=== PATIENT | female | born 2000 | race Caucasian/White ===

== ENCOUNTER 2025-06-25 17:06 | Outpatient (CLI) | payer OTHER, SELFPAY ==
--- NOTE | ~2025-06-25 | XR_ITS ---
EXAMINATION: SCOLIOSIS DATE: 06/27/2025 8:10 CDT INDICATION: Scoliosis TECHNIQUE: Standing AP and lateral views of the thoracolumbar spine FINDINGS: There are 12 rib bearing thoracic vertebral bodies and 5 non-rib bearing lumbar type vertebral bodies. There is no listhesis, compression deformity or vertebral body anomalies. There is levocurvature of the upper thoracic spine centered at T4 measuring 8 degrees. There is dextrocurvature of the lower thoracic spine centered at T10 measuring 4 degrees and there is levocurvature of the lumbar spine centered at L2-3 measuring 9 degrees. IMPRESSION: 1. Mild curvature of the thoracolumbar spine as discussed above. 2. No vertebral body anomalies. Reviewed, dictated and finalized at location O.
--- OUTSIDE RECORDS SUMMARY | 2025-06-25 17:12 | XMS_ITS | Clinical Summary ---
Author Organization [facility] Health Address [address] [place] [address] Care Team Providers Care Reporting Developer Name Role Phone Unavailable Primary Care Provider Unavailabl e Allergies Active Allergy Reactions Criticality Noted Date Comments Cat Dander Low 09/11/2023 Other Reaction(s): Rash Drospirenone-Ethiny l Estradiol 04/14/2020 Other Reaction(s): Unknown Gluten High 09/11/2023 Other Reaction(s): GI Reaction Celiac Disease Lactose Medium 07/11/2017 Other Reaction(s): Vomiting Latex Hives,Itching,Rash Low 12/15/2020 Shellfish Containing Products High 09/11/2023 Other Reaction(s): Anaphylaxis Sulfa (Sulfonamide Antibiotics) Rash High 09/11/2023 Other Reaction(s): Anaphylaxis Wheat 09/11/2023 Other Reaction(s): Gastrointestinal Symptom Medications ProAir HFA 90 mcg/actuation inhaler 2 Active Symbicort 80-4.5 mcg/actuation inhaler 1 Active AntifungaL, clotrimazole, 1 % cream 1 Active Baqsimi 3 mg/actuation spray,non-aeroso l 2 Active Tresiba FlexTouch U-200 200 unit/mL (3 mL) injection 2 Active HumaLOG KwikPen Insulin 200 unit/mL (3 mL) insulin pen injection 2 Active levothyroxine (SYNTHROID, UNITHROID) 75 mcg tablet 2 Active montelukast (SINGULAIR) 10 mg tablet 2 Active metFORMIN XR (GLUCOPHATE-XR) 500 mg 24 hr tablet 2 Active ondansetron (ZOFRAN) 4 mg tablet 2 Active triamcinolone (KENALOG) 0.1 % ointment 2 Active chlorhexidine (PERIDEX) 0.12 % solution Use 15ml to rinse 1 minute then spit out, use BID for 7 days 21 mL 2 Active Precision Xtra Test test strip 2 Active doxycycline (ADOXA) 100 mg tablet TAKE 1 TABLET BY MOUTH TWICE DAILY WITH MEAL 2 Active DULoxetine (CYMBALTA) [address] capsule TAKE 1 CAPSULE BY MOUTH TWICE DAILY. DO NOT CRUSH OR CHEW 2 Active hydrocortisone 2.5 % cream Apply to affected areas twice daily for 2 weeks as needed for flares. 2 Active BD Ultra-Fine Cassidy Pen Needle 32 gauge x 5/32 needle 2 Active insulin lispro (HumaLOG) 100 unit/mL injection 2 Active montelukast (Singulair) 10 mg tablet Active amoxicillin-pot clavulanate (AUGMENTIN) 875-125 mg tablet Take 1 tablet by mouth in the morning and at bedtime. for 10 days 3 Active fluticasone propion-salmeter oL (Advair Diskus) 250-50 mcg/dose diskus inhaler Obtain advice for OTCs.For inhalation.Ch nicole with your doctor before becoming .Rins e mouth after use. 3 Active gabapentin (NEURONTIN) 300 mg capsule May cause drowsiness.Ta ke or use exactly as directed. 3 Active Active Problems Problem Noted Date Diagnosed Date Acute upper respiratory infection 09/11/2023 Overview (09/11/2023): Reassured parent. Discussed expected course of illness and advised to irrigate nose with saline. Humidifier to help loosen secretions. Tylenol or Motrin for fevers. Push fluids to maintain hydration. Wash hands well to prevent spread. Should symptoms persist for more Panic disorder 09/11/2023 Eczema 09/11/2023 Overview (09/11/2023): Mild atopic deramtitis confined to her wrists. Apply Hydrocort 1% topically bid for 2 weeks and then as needed for itching rash. RTC prn if no improvement. Outside Source Comment: Mild atopic deramtitis confined to her wrists. Apply Hydrocort 1% topically bid for 2 weeks and then as needed for itching rash. RTC prn if no improvement. MOISTURIZE W/ MOISTURIZING LOTION IMMEDIATELY AFTER BATHING. LIMIT SOAP USE AND ONLY MOISTURIZING SOAP (IE DOVE) TX FLARE UP W/ TAC CREAM AND MAINTAIN W/ HYDROCORT NEEDED. 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 Family history of endometriosis 09/11/2023 History of asthma 09/11/2023 History of type 1 diabetes mellitus 09/11/2023 assisted (current) use of oral hypoglycemic wendie gs 09/11/2023 terminal worker current use of insulin 09/11/2023 Mild persistent asthma 09/11/2023 Neuropathy due to type 1 diabetes mellitus 09/11 Right upper quadrant pain 09/11/2023 Sinusitis 09/11/2023 Skin rash 09/11/2023 Type 1 diabetes mellitus with hyperglycemia 08/31 Encounter for childhood immunizations appropriat e for age 0402/25/2023 Abdominal pain 02/24/2023 Allergic rhinitis due to pollen 02/24/2023 Asthma 02/24/2023 Autoimmune thyroiditis 02/24/2023 Chronic pain syndrome 02/24/2023 Gastroesophageal reflux disease without esophagi tis 02/24/2023 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 Adolescent idiopathic scoliosis, site unspecifie d 04/28/2018 Hypothyroidism, unspecified 04/28/2018 Moderate persistent asthma, uncomplicated 2017 Other allergic rhinitis 04/28/2018 Type 1 diabetes mellitus without complication 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 Celiac disease 07/11/2017 Polycystic ovarian syndrome 07/11/2017 Social History Tobacco Use Types Packs/Day Years Used Date Smoking Tobacco: Never Smokeless Tobacco: Never Alcohol Use Standard Drinks/Week Comments Never 0 (1 standard drink = 0.6 oz pur e alcohol) Comments Unknown Sex and Gender Information Value Date Recorded Sex Assigned at Not on file Legal Sex Female 7:23 AM PST Gender Identity Not on file Sexual Orientation Not on file Last Filed Vital Signs Vital Sign Reading Time Taken Comments Blood Pressure 108/73 09/15/2024 8:14 AM PST Pulse 86 09/15/2024 8:14 AM PST Temperature - - Respiratory Rate - - Oxygen Saturation - - Inhaled Oxygen Concentration - - Weight - - Height - - Body Mass Index - - Plan of Treatment Health Maintenance Due Date Last Done Comments Dental Oral Exam 10/29/2024 04/28/2024, 09/2023, 12/24/2021, Additional history exists Dental Prophylaxis 10/29/2024 04/28/2024, 0 03/15/2023, 08/05/2022, Additional history exists Dental X-Ray: Bitewings 10/29/2024 04/28/2024 Velscope Screening 04/28/2025 04/28/2024, 11/11/2022 Dental CBCT 04/28/2027 04/28/2024, 12/24/2021, 06/01 Dental X-Ray: Full Mouth 04/29/2027 04/28/2024, 04/01 Dental X-Ray: Panoramic 08/19/2027 08/18/20, 04/28/2024, 09/10/2023, Additional history exists Procedures Procedure Name Priority Date/Time Associated Diagnosis Comments PANORAMIC RADIOGRAPHIC IMAGE Routine 08/18/2024 11:00 AM PDT [facility] CT CAPTURE AND INTERPRETATION WITH FIELD OF VIEW OF BOTH JAWS; WITH OR WITHOUT CRANIUM Routine 04/28/2024 11:00 AM PDT ADJUNCTIVE PRE-DIAGNOSTIC TEST THAT AIDS IN DETECTION OF MUCOSAL ABNORMALITIES Routine 04/28/2024 11:00 AM PDT PROPHYLAXIS - ADULT Routine 04/28/2024 1 1:00 AM PDT Encounter for dental examination and cleaning without abnormal findings COMPREHENSIVE ORAL EVALUATION - NEW OR ESTABLISHED PATIENT Routine 04/28/2024 11:00 AM PDT Encounter for dental examination and cleaning without abnormal findings from Last 3 Months or Most Recently Relevant to Health Maintenance Insurance [employer] [facility] [employer] [facility] [employer] [facility]
--- OUTSIDE RECORDS SUMMARY | 2025-06-25 17:12 | XMS_ITS | Encounter Summary ---
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, [address] [place] [address] Aura Cohen, KT 08/18/2024 11:00 AM PDT Office Visit [facility] [address], [address] [place] [address] Melly Moulton DMD 04/28/2024 11:00 AM PDT Office Visit [facility] [address], [address] [place] [address] Melly Moulton DMD Encounter for dental examination and cleaning without abnormal findings (Primary Dx) 09/10/2023 10:00 AM PST Office Visit [facility] [address], [address] [place] [phone] Keith Mosher DMD 03/15/2023 12:30 PM PDT Office Visit [facility] [address], [address] [place] [address] Suzy Jones, [facility] 11/11/2022 11:30 AM PST Office Visit [facility] [address] [place] [address] Suzy Jones, [facility] 11/11/2022 11:30 AM PST Office Visit [facility] [address] [place] [address] Keith Mosher, [facility] 08/05/2022 11:00 AM PDT Office Visit [facility] [address], [address] [place] [address] Suzy Jones, [facility] 04/29/2022 Travel 04/29/2022 10:30 AM PDT Office Visit [facility] [address], [address] [place] [address] Fernando Grant, DDS 04/29/2022 10:00 AM PDT Office Visit [facility] [address], [address] [place] [address] Suzy Jones, [facility] 02/23/2022 Travel 02/23/2022 9:00 AM PDT Office Visit [facility] [address] [place] [address] Maryanne Burroughs, KT 02/11/2022 Travel 02/11/2022 2:00 PM PDT Office Visit [facility] [address] [place] [address] Maryanne Burroughs DDS 01/12/2022 Travel 01/12/2022 10:00 AM PDT Office Visit [facility] [address] [place] [address] Fernando Grant, KT 01/07/2022 Travel 01/07/2022 2:30 PM PST Consult [facility] [address] [place] [address] Maryanne Burroughs, DDS 12/24/2021 10:30 AM PST Office Visit [facility] [address], [address] [place] [address] Suzy Jones, RD 12/24/2021 Travel 12/24/2021 9:00 AM PST Office Visit [facility] [address] [place] [address] JuanitaFernando, DDS 07/09/2021 Travel 07/09/2021 11:00 AM PDT Office Visit [facility] [address] [place] [address] Lala Caba, DMD 06/23/2021 Travel 06/23/2021 10:00 AM PDT Office Visit [facility] [address] [place] [address] Lala Caba, DMD 12/15/2020 Travel 12/15/2020 10:00 AM PST Office Visit [facility] [address] [place] [address] Chelsy Sue, DMD 11/19/2019 Converted 13x Documents [facility] [address], [address] [place] [phone] <No scans attached> 11/19/2019 Converted 13x Documents [facility] [address] [place] [phone] <No scans attached> 11/19/2019 Converted CPS Chart Documents [facility] [address] [place] [phone] <No scans attached> 11/19/2019 Converted CPS Chart Documents [facility] [address] [place] [phone] <No scans attached> 11/19/2019 Converted 13x Documents [facility] [address] [place] [address] <No scans attached> Last Filed Vital Signs Vital Sign Reading Time Taken Comments Blood Pressure 108/73 09/15/2024 8:14 AM PST Pulse 86 09/15/2024 8:14 AM PST Temperature - - Respiratory Rate - - Oxygen Saturation - - Inhaled Oxygen Concentration - - Weight - - Height - - Body Mass Index - - Plan of Treatment Not on file Procedures Procedure Name Priority Date/Time Associated Diagnosis Comments PERIO CONSULT Routine 09/15/2024 8:00 AM PST PANORAMIC RADIOGRAPHIC IMAGE Routine 08/18/2024 11:00 AM PDT BITEWING - SINGLE RADIOGRAPHIC IMAGE Routine 08/18/2024 11:00 AM PDT ADDITIONAL X-RAY Routine 08/18/2024 11:0 0 AM PDT SINGLE X-RAY Routine 08/18/2024 11:00 AM PDT LIMITED ORAL EVALUATION - PROBLEM FOCUSED Routine 08/18/2024 11:00 AM PDT ORAL HYGIENE INSTRUCTIONS Routine 2023 11:00 AM PDT TOPICAL APPLICATION OF FLUORIDE VARNISH Routine 04/28/2024 11:00 AM PDT PROPHYLAXIS - ADULT Routine 04/28/2024 1 1:00 AM PDT Encounter for dental examination and cleaning without abnormal findings ADJUNCTIVE PRE-DIAGNOSTIC TEST THAT AIDS IN DETECTION OF MUCOSAL ABNORMALITIES Routine 04/28/2024 11:00 AM PDT INTRAORAL PHOTO Routine 04/28/2024 11:00 AM PDT INTRAORAL PHOTO Routine 04/28/2024 11:00 AM PDT INTRAORAL PHOTO Routine 04/28/2024 11:00 AM PDT INTRAORAL PHOTO Routine 04/28/2024 11:00 AM PDT ADDITIONAL X-RAY Routine 04/28/2024 11:0 0 AM PDT ADDITIONAL X-RAY Routine 04/28/2024 11:0 0 AM PDT ADDITIONAL X-RAY Routine 04/28/2024 11:0 0 AM PDT ADDITIONAL X-RAY Routine 04/28/2024 11:0 0 AM PDT ADDITIONAL X-RAY Routine 04/28/2024 11:0 0 AM PDT BITEWINGS - FOUR RADIOGRAPHIC IMAGES Routine 04/28/2024 11:00 AM PDT SINGLE X-RAY Routine 04/28/2024 11:00 AM PDT COMPREHENSIVE ORAL EVALUATION - NEW OR ESTABLISHED PATIENT Routine 04/28/2024 11:00 AM PDT Encounter for dental examination and cleaning without abnormal findings [facility] CT CAPTURE AND INTERPRETATION WITH FIELD OF VIEW OF BOTH JAWS; WITH OR WITHOUT CRANIUM Routine 04/28/2024 11:00 AM PDT PANORAMIC RADIOGRAPHIC IMAGE Routine 09/10/2023 10:00 AM PST BITEWING - SINGLE RADIOGRAPHIC IMAGE Routine 09/10/2023 10:00 AM PST ADDITIONAL X-RAY Routine 09/10/2023 10:0 0 AM PST SINGLE X-RAY Routine 09/10/2023 10:00 AM PST LIMITED ORAL EVALUATION - PROBLEM FOCUSED Routine 09/10/2023 10:00 AM PST ORAL HYGIENE INSTRUCTIONS Routine 2022 12:30 PM PDT PROPHYLAXIS - ADULT Routine 03/15/2023 1 2:30 PM PDT TOPICAL APPLICATION OF FLUORIDE VARNISH Routine 11/11/2022 11:30 AM PST SCALING IN PRESENCE OF GENERALIZED MODERATE OR SEVERE GINGIVAL INFLAMMATION Routine 11/11/2022 11:30 AM PST ADJUNCTIVE PRE-DIAGNOSTIC TEST THAT AIDS IN DETECTION OF MUCOSAL ABNORMALITIES Routine 11/11/2022 11:30 AM PST BITEWINGS - FOUR RADIOGRAPHIC IMAGES Routine 11/11/2022 11:30 AM PST ADDITIONAL X-RAY Routine 11/11/2022 11:3 0 AM PST ADDITIONAL X-RAY Routine 11/11/2022 11:3 0 AM PST PERIODIC ORAL EVALUATION - ESTABLISHED PATIENT Routine 11/11/2022 11:30 AM PST ADDITIONAL X-RAY Routine 11/11/2022 11:3 0 AM PST SINGLE X-RAY Routine 11/11/2022 11:30 AM PST ORAL HYGIENE INSTRUCTIONS Routine 2021 11:00 AM PDT PROPHYLAXIS - ADULT Routine 08/05/2022 1 1:00 AM PDT RE-EVALUATION POST-OPERATIVE OFFICE VISIT Routine 04/29/2022 10:30 AM PDT ORAL HYGIENE INSTRUCTIONS Routine 2021 10:00 AM PDT PROPHYLAXIS - ADULT Routine 04/29/2022 1 0:00 AM PDT RE-EVALUATION POST-OPERATIVE OFFICE VISIT Routine 02/23/2022 9:00 AM PDT 23 AUTOGENOUS CONNECTIVE TISSUE GRAFT PROCEDURE FIRST Routine 02/11/2022 2:00 PM PDT 23 (ENDO) BIOLOGIC MATERIAL TO AID IN SOFT AND OSSEOUS TISSUE REGENERATION Routine 02/11/2022 2:00 PM PDT SURGICAL STENT Routine 02/11/2022 2:00 PM PDT 24 ENAMELPLASTY Routine 01/12/2022 10:00 AM PDT BITEWING - SINGLE RADIOGRAPHIC IMAGE Routine 01/12/2022 10:00 AM PDT ADDITIONAL X-RAY Routine 01/12/2022 10:0 0 AM PDT LIMITED ORAL EVALUATION - PROBLEM FOCUSED Routine 01/12/2022 10:00 AM PDT SINGLE X-RAY Routine 01/12/2022 10:00 AM PDT PERIO CONSULT Routine 01/07/2022 2:30 PM PST ORAL HYGIENE INSTRUCTIONS Routine 2021 10:30 AM PST PROPHYLAXIS - ADULT Routine 12/24/2021 1 0:30 AM PST BITEWINGS - FOUR RADIOGRAPHIC IMAGES Routine 12/24/2021 9:00 AM PST ADDITIONAL X-RAY Routine 12/24/2021 9:00 AM PST [address] [address] [address] CAPTURE AND INTERPRETATION WITH FIELD OF VIEW OF BOTH JAWS; WITH OR WITHOUT CRANIUM Routine 12/24/2021 9:00 AM PST ADDITIONAL X-RAY Routine 12/24/2021 9:00 AM PST ADDITIONAL X-RAY Routine 12/24/2021 9:00 AM PST SINGLE X-RAY Routine 12/24/2021 9:00 AM PST PERIODIC ORAL EVALUATION - ESTABLISHED PATIENT Routine 12/24/2021 9:00 AM PST 31 O RESIN-BASED COMPOSITE - ONE SURFACE, POSTERIOR Routine 07/09/2021 11:00 AM PDT 19 O RESIN-BASED COMPOSITE - ONE SURFACE, POSTERIOR Routine 07/09/2021 11:00 AM PDT TOPICAL APPLICATION OF FLUORIDE VARNISH Routine 06/23/2021 10:00 AM PDT ORAL HYGIENE INSTRUCTIONS Routine 2020 10:00 AM PDT PROPHYLAXIS - ADULT Routine 06/23/2021 1 0:00 AM PDT [facility] [address] CAPTURE AND INTERPRETATION WITH FIELD OF VIEW OF BOTH JAWS; WITH OR WITHOUT CRANIUM Routine 06/23/2021 10:00 AM PDT BITEWINGS - FOUR RADIOGRAPHIC IMAGES Routine 06/23/2021 10:00 AM PDT ADDITIONAL X-RAY Routine 06/23/2021 10:0 0 AM PDT ADDITIONAL X-RAY Routine 06/23/2021 10:0 0 AM PDT ADDITIONAL X-RAY Routine 06/23/2021 10:0 0 AM PDT SINGLE X-RAY Routine 06/23/2021 10:00 AM PDT PERIODIC ORAL EVALUATION - ESTABLISHED PATIENT Routine 06/23/2021 10:00 AM PDT ORAL HYGIENE INSTRUCTIONS Routine 2020 10:00 AM PST PROPHYLAXIS - ADULT Routine 12/15/2020 1 0:00 AM PST BITEWINGS - FOUR RADIOGRAPHIC IMAGES Routine 12/15/2020 10:00 AM PST ADDITIONAL X-RAY Routine 12/15/2020 10:0 0 AM PST ADDITIONAL X-RAY Routine 12/15/2020 10:0 0 AM PST ADDITIONAL X-RAY Routine 12/15/2020 10:0 0 AM PST ADDITIONAL X-RAY Routine 12/15/2020 10:0 0 AM PST SINGLE X-RAY Routine 12/15/2020 10:00 AM PST PERIODIC ORAL EVALUATION - ESTABLISHED PATIENT Routine 12/15/2020 10:00 AM PST ORAL HYGIENE INSTRUCTIONS Routine 2019 12:00 AM PDT PROPHYLAXIS - ADULT Routine 06/09/2020 1 2:00 AM PDT CANCELLED APPOINTMENT Routine 05/29/2020 12:00 AM PDT ORAL HYGIENE INSTRUCTIONS Routine 2019 12:00 AM PST PROPHYLAXIS - ADULT Routine 12/10/2019 1 2:00 AM PST PERIODIC ORAL EVALUATION - ESTABLISHED PATIENT Routine 12/10/2019 12:00 AM PST ADDITIONAL X-RAY Routine 12/10/2019 12:0 0 AM PST ADDITIONAL X-RAY Routine 12/10/2019 12:0 0 AM PST ADDITIONAL X-RAY Routine 12/10/2019 12:0 0 AM PST SINGLE X-RAY Routine 12/10/2019 12:00 AM PST INTRAORAL PHOTO Routine 12/10/2019 12:00 AM PST INTRAORAL PHOTO Routine 12/10/2019 12:00 AM PST INTRAORAL PHOTO Routine 12/10/2019 12:00 AM PST INTRAORAL PHOTO Routine 12/10/2019 12:00 AM PST 15 LO COMPOSITE FILLING Routine 06/19/20 19 12:00 AM PDT 2 LO COMPOSITE FILLING Routine 9 12:00 AM PDT 18 O COMPOSITE FILLING Routine 9 12:00 AM PDT ORAL HYGIENE INSTRUCTIONS Routine 2018 12:00 AM PDT TOPICAL APPLICATION OF FLUORIDE VARNISH Routine 06/05/2019 12:00 AM PDT PROPHYLAXIS - ADULT Routine 06/05/2019 1 2:00 AM PDT PERIODIC ORAL EVALUATION - ESTABLISHED PATIENT Routine 06/05/2019 12:00 AM PDT BITEWINGS - FOUR RADIOGRAPHIC IMAGES Routine 06/05/2019 12:00 AM PDT ADDITIONAL X-RAY Routine 06/05/2019 12:0 0 AM PDT ADDITIONAL X-RAY Routine 06/05/2019 12:0 0 AM PDT SINGLE X-RAY Routine 06/05/2019 12:00 AM PDT INTRAORAL PHOTO Routine 06/05/2019 12:00 AM PDT INTRAORAL PHOTO Routine 06/05/2019 12:00 AM PDT INTRAORAL PHOTO Routine 06/05/2019 12:00 AM PDT INTRAORAL PHOTO Routine 06/05/2019 12:00 AM PDT ORAL HYGIENE INSTRUCTIONS Routine 2018 12:00 AM PST TOPICAL APPLICATION OF FLUORIDE VARNISH Routine 11/10/2018 12:00 AM PST PRODENTEC GEL/PASTE Routine 11/10/2018 1 2:00 AM PST PROPHYLAXIS - ADULT Routine 11/10/2018 1 2:00 AM PST PERIODIC ORAL EVALUATION - ESTABLISHED PATIENT Routine 11/10/2018 12:00 AM PST BITEWINGS - FOUR RADIOGRAPHIC IMAGES Routine 11/10/2018 12:00 AM PST ADDITIONAL X-RAY Routine 11/10/2018 12:0 0 AM PST ADDITIONAL X-RAY Routine 11/10/2018 12:0 0 AM PST ADDITIONAL X-RAY Routine 11/10/2018 12:0 0 AM PST ADDITIONAL X-RAY Routine 11/10/2018 12:0 0 AM PST ADDITIONAL X-RAY Routine 11/10/2018 12:0 0 AM PST SINGLE X-RAY Routine 11/10/2018 12:00 AM PST ORAL HYGIENE INSTRUCTIONS Routine 2017 12:00 AM PDT TOPICAL APPLICATION OF FLUORIDE VARNISH Routine 05/05/2018 12:00 AM PDT PROPHYLAXIS - ADULT Routine 05/05/2018 1 2:00 AM PDT PERIODIC ORAL EVALUATION - ESTABLISHED PATIENT Routine 05/05/2018 12:00 AM PDT ADDITIONAL X-RAY Routine 05/05/2018 12:0 0 AM PDT ADDITIONAL X-RAY Routine 05/05/2018 12:0 0 AM PDT ADDITIONAL X-RAY Routine 05/05/2018 12:0 0 AM PDT SINGLE X-RAY Routine 05/05/2018 12:00 AM PDT INTRAORAL PHOTO Routine 05/05/2018 12:00 AM PDT INTRAORAL PHOTO Routine 05/05/2018 12:00 AM PDT INTRAORAL PHOTO Routine 05/05/2018 12:00 AM PDT INTRAORAL PHOTO Routine 05/05/2018 12:00 AM PDT PERIODIC ORAL EVALUATION - ESTABLISHED PATIENT Routine 10/20/2017 12:00 AM PST ORAL HYGIENE INSTRUCTIONS Routine 2016 12:00 AM PST PROPHYLAXIS - ADULT Routine 10/20/2017 1 2:00 AM PST BITEWINGS - FOUR RADIOGRAPHIC IMAGES Routine 10/20/2017 12:00 AM PST ADDITIONAL X-RAY Routine 10/20/2017 12:0 0 AM PST ADDITIONAL X-RAY Routine 10/20/2017 12:0 0 AM PST ADDITIONAL X-RAY Routine 10/20/2017 12:0 0 AM PST SINGLE X-RAY Routine 10/20/2017 12:00 AM PST INTRAORAL PHOTO Routine 10/20/2017 12:00 AM PST INTRAORAL PHOTO Routine 10/20/2017 12:00 AM PST INTRAORAL PHOTO Routine 10/20/2017 12:00 AM PST INTRAORAL PHOTO Routine 10/20/2017 12:00 AM PST ORAL HYGIENE INSTRUCTIONS Routine 2016 12:00 AM PDT TOPICAL APPLICATION OF FLUORIDE VARNISH Routine 04/13/2017 12:00 AM PDT PROPHYLAXIS - ADULT Routine 04/13/2017 1 2:00 AM PDT PERIODIC ORAL EVALUATION - ESTABLISHED PATIENT Routine 04/13/2017 12:00 AM PDT BITEWINGS - TWO RADIOGRAPHIC IMAGES Routine 04/13/2017 12:00 AM PDT ADDITIONAL X-RAY Routine 04/13/2017 12:0 0 AM PDT SINGLE X-RAY Routine 04/13/2017 12:00 AM PDT INTRAORAL PHOTO Routine 04/13/2017 12:00 AM PDT INTRAORAL PHOTO Routine 04/13/2017 12:00 AM PDT INTRAORAL PHOTO Routine 04/13/2017 12:00 AM PDT INTRAORAL PHOTO Routine 04/13/2017 12:00 AM PDT ORAL HYGIENE INSTRUCTIONS Routine 2015 12:00 AM PST TOPICAL APPLICATION OF FLUORIDE VARNISH Routine 09/22/2016 12:00 AM PST PROPHYLAXIS - ADULT Routine 09/22/2016 1 2:00 AM PST PERIODIC ORAL EVALUATION - ESTABLISHED PATIENT Routine 09/22/2016 12:00 AM PST BITEWINGS - TWO RADIOGRAPHIC IMAGES Routine 09/22/2016 12:00 AM PST ADDITIONAL X-RAY Routine 09/22/2016 12:0 0 AM PST SINGLE X-RAY Routine 09/22/2016 12:00 AM PST INTRAORAL PHOTO Routine 09/22/2016 12:00 AM PST INTRAORAL PHOTO Routine 09/22/2016 12:00 AM PST INTRAORAL PHOTO Routine 09/22/2016 12:00 AM PST INTRAORAL PHOTO Routine 09/22/2016 12:00 AM PST 18 LIMITED ORAL EVALUATION - PROBLEM FOCUSED Routine 05/11/2016 12:00 AM PDT TREATMENT OF COMPLICATIONS (POST-SURGICAL) - UNUSUAL CIRCUMSTANCES, BY REPORT Routine 03/08/2016 12:00 AM PDT OS CONSULT Routine 03/02/2016 12:00 AM PDT 32 REMOVAL OF IMPACTED TOOTH - COMPLETELY BONY Routine 03/02/2016 12:00 AM PDT 17 REMOVAL OF IMPACTED TOOTH - COMPLETELY BONY Routine 03/02/2016 12:00 AM PDT 16 REMOVAL OF IMPACTED TOOTH - COMPLETELY BONY Routine 03/02/2016 12:00 AM PDT 1 REMOVAL OF IMPACTED TOOTH - COMPLETELY BONY Routine 03/02/2016 12:00 AM PDT THERAPEUTIC PARENTERAL DRUGS, TWO OR MORE ADMINISTRATIONS, DIFFERENT MEDICATIONS Routine 03/02/2016 12:00 AM PDT DEEP SEDATION/GENERAL ANESTHESIA EACH SUBSEQUENT 15 MINUTE INCREMENT Routine 03/02/2016 12:00 AM PDT DEEP SEDATION/GENERAL ANESTHESIA EACH SUBSEQUENT 15 MINUTE INCREMENT Routine 03/02/2016 12:00 AM PDT DEEP SEDATION/GENERAL ANESTHESIA EACH SUBSEQUENT 15 MINUTE INCREMENT Routine 03/02/2016 12:00 AM PDT ORAL HYGIENE INSTRUCTIONS Routine 2015 12:00 AM PDT TOPICAL APPLICATION OF FLUORIDE VARNISH Routine 02/04/2016 12:00 AM PDT 31 SEALANT 2ND MOLAR Routine 02/04/2016 12:00 AM PDT 15 SEALANT 2ND MOLAR Routine 02/04/2016 12:00 AM PDT PROPHYLAXIS - ADULT Routine 02/04/2016 1 2:00 AM PDT PERIODIC ORAL EVALUATION - ESTABLISHED PATIENT Routine 02/04/2016 12:00 AM PDT BITEWINGS - TWO RADIOGRAPHIC IMAGES Routine 02/04/2016 12:00 AM PDT ADDITIONAL X-RAY Routine 02/04/2016 12:0 0 AM PDT SINGLE X-RAY Routine 02/04/2016 12:00 AM PDT ORAL HYGIENE INSTRUCTIONS Routine 2014 12:00 AM PDT C EXTRACTION, ERUPTED TOOTH OR EXPOSED ROOT (ELEVATION AND/OR FORCEPS REMOVAL) Routine 07/30/2015 12:00 AM PDT TOPICAL APPLICATION OF FLUORIDE EXCLUDING VARNISH Routine 07/30/2015 12:00 AM PDT 2 SEALANT 2ND MOLAR Routine 07/30/2015 1 2:00 AM PDT PROPHYLAXIS - CHILD Routine 07/30/2015 1 2:00 AM PDT PERIODIC ORAL EVALUATION - ESTABLISHED PATIENT Routine 07/30/2015 12:00 AM PDT ADDITIONAL X-RAY Routine 07/30/2015 12:0 0 AM PDT ADDITIONAL X-RAY Routine 07/30/2015 12:0 0 AM PDT ADDITIONAL X-RAY Routine 07/30/2015 12:0 0 AM PDT SINGLE X-RAY Routine 07/30/2015 12:00 AM PDT INTRAORAL PHOTO Routine 07/30/2015 12:00 AM PDT INTRAORAL PHOTO Routine 07/30/2015 12:00 AM PDT INTRAORAL PHOTO Routine 07/30/2015 12:00 AM PDT INTRAORAL PHOTO Routine 07/30/2015 12:00 AM PDT ORTHO CONSULT Routine 02/25/2015 12:00 AM PDT CANCELLED APPOINTMENT Routine 02/19/2015 12:00 AM PDT J EXTRACTION, ERUPTED TOOTH OR EXPOSED ROOT (ELEVATION AND/OR FORCEPS REMOVAL) Routine 01/22/2015 12:00 AM PDT H EXTRACTION, ERUPTED TOOTH OR EXPOSED ROOT (ELEVATION AND/OR FORCEPS REMOVAL) Routine 01/22/2015 12:00 AM PDT TOPICAL APPLICATION OF FLUORIDE VARNISH Routine 01/22/2015 12:00 AM PDT 31 SEALANT 2ND MOLAR Routine 01/22/2015 12:00 AM PDT 18 SEALANT 2ND MOLAR Routine 01/22/2015 12:00 AM PDT PROPHYLAXIS - CHILD Routine 01/22/2015 1 2:00 AM PDT PERIODIC ORAL EVALUATION - ESTABLISHED PATIENT Routine 01/22/2015 12:00 AM PDT BITEWINGS - FOUR RADIOGRAPHIC IMAGES Routine 01/22/2015 12:00 AM PDT ADDITIONAL X-RAY Routine 01/22/2015 12:0 0 AM PDT SINGLE X-RAY Routine 01/22/2015 12:00 AM PDT INTRAORAL PHOTO Routine 01/22/2015 12:00 AM PDT INTRAORAL PHOTO Routine 01/22/2015 12:00 AM PDT INTRAORAL PHOTO Routine 01/22/2015 12:00 AM PDT INTRAORAL PHOTO Routine 01/22/2015 12:00 AM PDT TOPICAL APPLICATION OF FLUORIDE EXCLUDING VARNISH Routine 12/20/2012 12:00 AM PST 30 SEALANT 1ST MOLAR Routine 12/20/2012 12:00 AM PST 19 SEALANT 1ST MOLAR Routine 12/20/2012 12:00 AM PST 14 SEALANT 1ST MOLAR Routine 12/20/2012 12:00 AM PST 3 SEALANT 1ST MOLAR Routine 12/20/2012 1 2:00 AM PST PROPHYLAXIS - CHILD Routine 12/20/2012 1 2:00 AM PST INTRAORAL PHOTO Routine 12/20/2012 12:00 AM PST INTRAORAL PHOTO Routine 12/20/2012 12:00 AM PST INTRAORAL PHOTO Routine 12/20/2012 12:00 AM PST INTRAORAL PHOTO Routine 12/20/2012 12:00 AM PST COMPREHENSIVE ORAL EVALUATION - NEW OR ESTABLISHED PATIENT Routine 12/19/2012 12:00 AM PST PANORAMIC RADIOGRAPHIC IMAGE Routine 12/19/2012 12:00 AM PST BITEWINGS - FOUR RADIOGRAPHIC IMAGES Routine 12/19/2012 12:00 AM PST ADDITIONAL X-RAY Routine 12/19/2012 12:0 0 AM PST SINGLE X-RAY Routine 12/19/2012 12:00 AM PST Visit Diagnoses Diagnosis Start Date Encounter for dental examination and cleaning without abnormal findings 04/28/2024 Insurance [employer] [facility] [employer] [facility] [employer] AND BLUE SHIELD [facility]
--- OUTSIDE RECORDS SUMMARY | 2025-06-25 17:12 | XMS_ITS | Clinical Summary ---
Author Organization [place] [id number] Address [address] [place] [address] Care Team Providers Care Student Services Rep Name Role Phone Georgia Cohn NP Primary Care Provider [phone] Allergies Active Allergy Reactions Criticality Noted Date Comments Cat Dander Rash Medium 09/11/2023 Other Reaction(s): Rash Gluten Other (See comments) High 09/11/2023 Other Reaction(s): GI Reaction Celiac Disease Lactose Other (See comments) Medium 07/11/2017 Other Reaction(s): Vomiting Latex Hives,Itching,Rash Medium 12/15/2020 Shellfish Containing Products Anaphylaxis High 09/11/2023 Other Reaction(s): Anaphylaxis Sulfa (Sulfonamide Antibiotics) Hives,Rash High 09/11/2023 Other Reaction(s): Anaphylaxis Wheat Other (See comments) 09/11/2023 Other Reaction(s): Gastrointestinal Symptom Medications ARIPiprazole (ABILIFY) 5 mg tablet Take 1 tablet (5 mg total) by mouth daily 5 Active montelukast (SINGULAIR) 10 mg tablet Take 1 tablet (10 mg total) by mouth daily Active insulin lispro (HumaLOG, ADMELOG) 100 unit/mL vial for injection Inject under the skin continuously as needed 2 Active insulin lispro (HumaLOG) 200 unit/mL (3 mL) pen for injection 2 Active insulin degludec (TRESIBA) 200 unit/mL (3 mL) pen for injection 2 Active hydrOXYzine (ATARAX) 10 mg tablet Take 1 tablet (10 mg total) by mouth 3 (three) times a day as needed 5 Active gabapentin (NEURONTIN) 300 mg capsule Take 1 capsule (300 mg total) by mouth 2 (two) times a day as needed 3 Active Symbicort 80-4.5 mcg/actuation inhaler Inhale 2 puffs 2 (two) times a day Active doxycycline 100 mg tablet TAKE 1 TABLET BY MOUTH TWICE DAILY WITH MEAL 2 Active EPINEPHrine 0.3 mg/0.3 mL auto-injection syringe INJECT 1 PEN IN THE MUSCLE DIRECTED 5 Active famotidine (PEPCID) 20 mg/2 mL injection 2 mL (20 mg total) every 12 (twelve) hours Active levocetirizine (XYZAL) 5 mg tablet Take 1 tablet (5 mg total) by mouth every evening Active albuterol HFA (PROVENTIL HFA,VENTOLIN HFA,PROAIR HFA) 90 mcg/actuation inhaler Inhale 2 puffs every 6 (six) hours as needed for wheezing Active Active Problems No known active problems Encounters Date Type Department Care Team Description 05/28/2025 9:00 AM CDT Office Visit [facility] Medicine Pediatric Genetics [address] [place] [address] Lisa Hutton, LYN Hypermobility syndrome (Primary Dx); Pes planus of both feet from Last 3 Months Medical History Medical History Date Comments Type 1 diabetes (HCC) Celiac disease Bipolar 1 disorder (HCC) PCOS (polycystic ovarian syndrome) Asthma Major's thyroiditis Social History Tobacco Use Types Packs/Day Years Used Date Smoking Tobacco: Former Cigarettes Tobacco Cessation:Counseling Given: Not Answered Comments Unknown Sex and Gender Information Value Date Recorded Sex Assigned at Not on file Legal Sex Female 12:39 PM CDT Gender Identity Not on file Sexual Orientation Not on file Obstetrics History Last Filed Vital Signs Vital Sign Reading Time Taken Comments Blood Pressure 127/62 05/28/2025 9:09 AM CDT Pulse 91 05/28/2025 9:09 AM CDT Temperature 36.5 C (97.7 F) 05/28/2025 9:09 AM CDT Respiratory Rate - - Oxygen Saturation - - Inhaled Oxygen Concentration - - Weight 63.7 kg (140 lb 6.9 oz) 05/28/2025 9:09 A M CDT Height 169.6 cm (5' 6.77) 05/28/2025 9:09 AM CD T Body Mass Index 22.15 05/28/2025 9:09 AM CDT Plan of Treatment Health Maintenance Due Date Last Done Comments Cervical Cancer Screening 2002 Depression Screening 2002 Hepatitis C Screening 2002 DTaP/Tdap/Td Vaccine (1 - Tdap) 2013 Varicella Vaccines (1 of 2 - 13+ 2-dose series) 2015 HPV Vaccines (1 - 3-dose series) 2017 Meningococcal B Vaccine (1 o f 2 - Standard) 2018 Regular Well Visit/Exam 18-64 2020 Pneumococcal vaccine <65 (1 of 2 - PCV) 2021 Influenza Vaccine (#1) 2025 Hepatitis B Screening Completed 02/22/2025, 025 Insurance [facility] Care Teams Student Services Rep Relationship Specialty Start Date End Date Georgia Cohn NP [address] [place] [address] PCP - General Family Practice 04/01/25
== END 2025-06-25 17:07 | disposition home or self-care (01) ==
PROVIDERS: PCP Nurse Practitioner Family; Visit Provider Nurse Practitioner Family
DX: M43.8X5 Other specified deforming dorsopathies, thoracolumbar region (principal); M51.369 Other intervertebral disc degeneration, lumbar region without mention of lumbar back pain or lower extremity pain
CPT/HCPCS: 72082